=== PATIENT | male | born 1965 | race Caucasian/White ===

== ENCOUNTER → 2016-10-18 | Outpatient (CLI) | payer OTHER ==
[~2016-10-18] MED LIST: OMNIPAQUE 350 MG/ML, 100ML BOTTLE ONE
== END | disposition home or self-care (01) ==
LOC: CFH 12:02
PROVIDERS: ATTEND Internal Medicine Hematology & Oncology
DX: C78.7 Secondary malignant neoplasm of liver and intrahepatic bile duct (principal); C79.51 Secondary malignant neoplasm of bone; C78.89 Secondary malignant neoplasm of other digestive organs; N28.1 Cyst of kidney, acquired; N20.0 Calculus of kidney; M51.37 Other intervertebral disc degeneration, lumbosacral region
CPT/HCPCS: 74177; Q9967

== ENCOUNTER → 2017-03-20 | Outpatient (CLI) | payer OTHER | END | disposition home or self-care (01) | LOC: CFH 12:52 | PROVIDERS: ATTEND Surgery | DX: C7A.8 Other malignant neuroendocrine tumors (principal); K76.9 Liver disease, unspecified; M47.896 Other spondylosis, lumbar region; N28.1 Cyst of kidney, acquired | CPT/HCPCS: 74170; 82565; Q9967 ==

== ENCOUNTER → 2018-02-18 | Outpatient (CLI) | payer OTHER | END | disposition home or self-care (01) | LOC: CFH 11:30 | PROVIDERS: ATTEND Surgery | DX: Z02.9 Encounter for administrative examinations, unspecified (principal) ==

== ENCOUNTER → 2018-08-30 | Outpatient (CLI) | payer OTHER | END | disposition home or self-care (01) | LOC: CFH 12:34 | PROVIDERS: ATTEND Internal Medicine Hematology & Oncology | DX: C78.7 Secondary malignant neoplasm of liver and intrahepatic bile duct (principal); C7A.00 Malignant carcinoid tumor of unspecified site; K80.20 Calculus of gallbladder without cholecystitis without obstruction; M47.814 Spondylosis without myelopathy or radiculopathy, thoracic region; M48.54XA Collapsed vertebra, not elsewhere classified, thoracic region, initial encounter for fracture; N28.1 Cyst of kidney, acquired | CPT/HCPCS: 74160; Q9967 ==

== ENCOUNTER → 2018-12-06 | Outpatient (CLI) | payer OTHER ==
[~2018-12-06] MED LIST changes: +ATOR40TA78 PO; +CETI10TA24 PO; +CHOL5000 PO; +DIPH25CA61 PO; +DULA1.5P INJ; +ENAL20TA PO; +FENO160T PO; +GLIM4TAB2 PO; +OCTR30VI3 INJ; -OMNIPAQUE 350 MG/ML, 100ML BOTTLE ONE; +SITA100T PO
== END | disposition home or self-care (01) ==
LOC: CVU 16:04
PROVIDERS: ATTEND Internal Medicine Interventional Cardiology
DX: E78.5 Hyperlipidemia, unspecified (principal); R53.83 Other fatigue
CPT/HCPCS: 93306

== ENCOUNTER → 2018-12-11 | Outpatient (CLI) | payer OTHER ==
[~2018-12-11] VITALS: Ht 188 cm; Wt 93.2 kg
[2018-12-11 11:59] LABS: ALBUMIN 3.7 g/dL (3.4-5.0); ANION GAP 7 mmol/L (5-15); CALCIUM 8.9 mg/dL (8.5-10.1); CHLORIDE 103 mmol/L (98-107)
[2018-12-11 12:03] LABS: ALANINE AMINOTRANSFERASE 107 U/L (12-78); ALKALINE PHOSPHATASE 134 U/L (45-117); BILIRUBIN,TOTAL 0.5 mg/dL (0.2-1.0); CREATININE 1.58 mg/dL (0.7-1.3); TOTAL PROTEIN 7.5 g/dL (6.4-8.2)
== END | disposition home or self-care (01) ==
LOC: STAR 08:00 → EDSTATUS 12-12 08:30
PROVIDERS: ATTEND Surgery
DX: Z01.818 Encounter for other preprocedural examination (principal); K80.20 Calculus of gallbladder without cholecystitis without obstruction
CPT/HCPCS: 36415; 80053

== ENCOUNTER 2018-12-26 06:21 | Day surgery (SDC) | payer OTHER ==
[~2018-12-26] VITALS: Ht 188 cm; Wt 97.5 kg
[~2018-12-26 06:21] MED LIST changes: +ASPI-496 PO; +CINN500C2 PO; +CYCL-259 PO; +MELO15TA24 PO; +METF500T17 PO; +MILK175C5 PO; +MULT-658 PO; +PIOG30TA67 PO; +TRAM50TA2 PO; +UBID1CAP43 PO
[2018-12-26 07:00] VITALS: BP 98/64
[2018-12-26] MEDS ORDERED: GABAPENTIN 300 MG CAPSULE PO ONE (07:00)
[2018-12-26] MEDS ORDERED: SCOPOLAMINE PATCH, 1.5MG PATCH.TD72 TD ONE (07:00)
[2018-12-26] MEDS ORDERED: ONDANSETRON ODT 8 MG PO ONE (07:00)
[2018-12-26] MEDS ORDERED: LACTATED RINGERS 1,000 ML IV SCH (07:00)
[2018-12-26] MEDS ORDERED: ACETAMINOPHEN 500 MG TABLET PO ONE (07:00)
[2018-12-26] MEDS ORDERED: BUPIVACAINE/PF-EPI 0.5% 1:200K ONE (07:07)
[2018-12-26] MEDS ORDERED: FAMOTIDINE 20 MG TABLET ONE (07:20)
[2018-12-26] MEDS ORDERED: FENTANYL PF 250 MCG/5ML ONE (07:22)
[2018-12-26] MEDS ORDERED: MIDAZOLAM 1 MG/ML, 2ML ONE (07:22)
[2018-12-26] MEDS ORDERED: FAMOTIDINE 20 MG TABLET PO ONE (07:30)
[2018-12-26] MEDS ORDERED: OXYcodone 5 MG/5 ML ORAL.SOL UDC PO PRN (08:30)
[2018-12-26] MEDS ORDERED: LABETALOL 5MG/ML, 20ML IV PRN (08:30)
[2018-12-26] MEDS ORDERED: ONDANSETRON 2MG/ML, 2ML IV PRN (08:30)
[2018-12-26] MEDS ORDERED: hydrALAzine 20 MG/ML, 1ML IV PRN (08:30)
[2018-12-26] MEDS ORDERED: PROMETHAZINE 25 MG/ML, 1ML IV PRN (08:30)
[2018-12-26] MEDS ORDERED: HYDROmorphone 2 MG/ML, 1ML IVPush PRN (08:30)
[2018-12-26] MEDS ORDERED: MEPERIDINE/PF 25MG/0.5ML IVPush PRN (08:30)
[2018-12-26] MEDS ORDERED: PROPOFOL 10 MG/ML, 20ML ONE (09:21)
[2018-12-26] MEDS ORDERED: SUCCINYLCHOLINE 20 MG/ML, 10ML ONE (09:21)
[2018-12-26] MEDS ORDERED: CEFOTETAN PMX 2GM/50ML 50 ML ONE (09:21)
[2018-12-26] MEDS ORDERED: PHENYLEPHRINE 10 MG/ML ONE (09:37)
[2018-12-26] MEDS ORDERED: DEXAMETHASONE 4 MG/ML, 1ML ONE (09:38)
[2018-12-26] MEDS ORDERED: ONDANSETRON 2MG/ML, 2ML ONE (09:38)
[2018-12-26] MEDS ORDERED: FENTANYL PF 100 MCG/2ML ONE (10:32)
[2018-12-26] MEDS ORDERED: OXYcodone 5 MG/5 ML ORAL.SOL UDC ONE (10:33)
[2018-12-26] MEDS: FENTANYL PF 100 MCG/2ML IV PRN ×2 (10:39→10:44)
[2018-12-26] MEDS ORDERED: MEPERIDINE/PF 25MG/ML,1ML ONE (10:47)
== END 2018-12-26 12:20 | disposition home or self-care (01) ==
LOC: OUT 06:21
PROVIDERS: ATTEND Surgery
DX: K80.10 Calculus of gallbladder with chronic cholecystitis without obstruction (principal); I10 Essential (primary) hypertension; E11.9 Type 2 diabetes mellitus without complications; E78.5 Hyperlipidemia, unspecified; I25.10 Atherosclerotic heart disease of native coronary artery without angina pectoris; Z79.899 Other long term (current) drug therapy
CPT/HCPCS: 47562; 82962; 88304; 93005; J0330; J1100; J2175; J2250; J2370; J2405; J2704; J3010; J3490; J7120; Q0162

== ENCOUNTER 2019-12-17 14:30 | Emergency (ER) | payer OTHER ==
[~2019-12-17] VITALS: Ht 188 cm; Wt 95.9 kg
[~2019-12-17 14:30] MED LIST changes: -CETI10TA24 PO; +CETI10TA26 PO; -GLIM4TAB2 PO; +GLIM4TAB8 PO
[2019-12-17] MEDS ORDERED: TRAM50TA2 PO (15:00)
[2019-12-17] MEDS ORDERED: ENAL10TA PO (15:00)
[2019-12-17] MEDS ORDERED: METF1000 PO (15:00)
[2019-12-17 15:36] LABS: BASOPHILS # (AUTO) 0.02 x10^3/uL (0-0.1); BASOPHILS % (AUTO) 0 % (0-1); EOSINOPHILS # (AUTO) 0.15 x10^3/uL (0-0.4); EOSINOPHILS % (AUTO) 3 % (1-7); LYMPHOCYTES # (AUTO) 1.69 x10^3/uL (1-3.4); LYMPHOCYTES % (AUTO) 32 % (22-44); MD NO; MEAN CORPUSCULAR HGB CONC 32.7 g/dL (33.2-36.2); MEAN CORPUSCULAR VOLUME 94.7 fL (81-97); MEAN PLATELET VOLUME 8.8 fL (7.4-10.4); MONOCYTES # (AUTO) 0.62 x10^3/uL (0.2-0.8); MONOCYTES % (AUTO) 12 % (2-9); NEUTROPHILS # (AUTO) 2.77 x10^3/uL (1.8-6.8); NEUTROPHILS % (AUTO) 53 % (42-75); PLATELET COUNT 282 x10^3/uL (130-400); RED BLOOD COUNT 3.62 x10^6/uL (4.38-5.82); RED CELL DISTRIBUTION WIDTH 13.6 % (9.4-14.8)
--- NOTE | 2019-12-17 15:43 | NUR ---
Patient provided UA cup. Pt ambulates to restroom with steady gait and balance. NADN. No needs expressed.
[2019-12-17 15:46] LABS: ALANINE AMINOTRANSFERASE 234 U/L (12-78); ALBUMIN 3.4 g/dL (3.4-5.0); ANION GAP 8 mmol/L (5-15); CALCIUM 8.8 mg/dL (8.5-10.1); CHLORIDE 110 mmol/L (98-107); CREATININE 1.54 mg/dL (0.7-1.3)
[2019-12-17 15:48] LABS: ALKALINE PHOSPHATASE 228 U/L (45-117); BILIRUBIN,TOTAL 2.3 mg/dL (0.2-1.0); TOTAL PROTEIN 7.7 g/dL (6.4-8.2)
[2019-12-17 16:23] LABS: MICROSCOPIC NOT IND
--- NOTE | 2019-12-17 17:48 | NUR ---
PIV ESTABLISHED, NS BOLUS INFUSING PER EMAR. CT AWARE OF PT READY FOR CT. PROVIDED PILLOWS PER PT REQUEST. NADN. NO OTHER NEEDS EXPRESSED.
[2019-12-17] MEDS ORDERED: SODIUM CHLORIDE 0.9% 1,000ML IVBOLUS ONE (18:00)
[2019-12-17] MEDS ORDERED: OMNIPAQUE 350 MG/ML, 100ML BOTTLE ONE (18:14)
--- NOTE | 2019-12-17 18:46 | NUR ---
PT RESTING ON GURNEY. HUANG. NO NEEDS EXPRESSED. WAITING FOR MD TO RECHECK.
--- NOTE | 2019-12-17 18:53 | NUR ---
RECEIVED BEDSIDE REPORT FROM BASHIR YATES. PT SITTING IN BED, BED RAILS UP, CALL LIGHT IN REACH, NO SIGNS OF DISTRESS. WILL CONTINUE TO MONITOR AND WATCH FOR ORDERS.
[2019-12-17 19:36] VITALS: BP 113/64
== END 2019-12-17 19:54 | disposition home or self-care (01) ==
LOC: ED 19:08
DX: N18.9 Chronic kidney disease, unspecified (principal); C79.9 Secondary malignant neoplasm of unspecified site; E86.0 Dehydration; R73.09 Other abnormal glucose
CPT/HCPCS: 36415; 74177; 80053; 81003; 83690; 85025; 96360; 99285; J7030; Q9967

== ENCOUNTER 2020-11-19 17:30 | Inpatient (IN) | payer BC ==
[~2020-11-19] VITALS: Ht 188 cm; Wt 93.0 kg
[~2020-11-19 17:30] MED LIST changes: -CETI10TA26 PO; +CETI10TA76 PO; -CYCL-259 PO; +CYCL10TA2 PO; +ENAL10TA9 PO; -ENAL20TA PO; +ENAL20TA9 PO; +METF1000 PO
--- NOTE | 2020-11-19 17:56 | NUR ---
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
[2020-11-19] MEDS ORDERED: SODIUM CHLORIDE 0.9% 1,000ML IVBOLUS ONE (19:00)
[2020-11-19 19:07] LABS: BASOPHILS % (AUTO) 1 % (0-1); EOSINOPHILS % (AUTO) 3 % (1-7); LYMPHOCYTES % (AUTO) 22 % (22-44); MEAN CORPUSCULAR HEMOGLOBIN 31.1 pg (27.5-34.5); MEAN CORPUSCULAR HGB CONC 34.4 g/dL (33.2-36.2); MEAN PLATELET VOLUME 8.8 fL (7.4-10.4); MONOCYTES % (AUTO) 12 % (2-9); NEUTROPHILS % (AUTO) 63 % (42-75); PLATELET COUNT 346 x10^3/uL (130-400); RED BLOOD COUNT 4.22 x10^6/uL (4.38-5.82); RED CELL DISTRIBUTION WIDTH 14.1 % (9.4-14.8)
[2020-11-19 19:18] LABS: ALANINE AMINOTRANSFERASE 95 U/L (12-78); ALBUMIN 3.5 g/dL (3.4-5.0); ANION GAP 9 mmol/L (5-15); CALCIUM 9.4 mg/dL (8.5-10.1); CHLORIDE 103 mmol/L (98-107); CREATININE 1.62 mg/dL (0.7-1.3)
[2020-11-19 19:21] LABS: ALKALINE PHOSPHATASE 135 U/L (45-117); BILIRUBIN,TOTAL 1.5 mg/dL (0.2-1.0); TOTAL PROTEIN 8.7 g/dL (6.4-8.2)
--- NOTE | 2020-11-19 19:41 | NUR ---
PT CAME IN FROM URGENT CARE WITH DX OF THRUSH YESTERDAY. PT HAS NOT BEE ABLE TO EAT, DRINK , OR SPEAK CLEARLY DUE TO THE PAIN IN HIS MOUTH. PT APPEARS TO HAVE WHITE FUNGAL MATTER ON TONGUE AND MOUTH WITH SORES. PT HX OF CANCER WITH METS ON LIVER. PT ALSO C/O OF LEFT WRIST PAIN ATTACHED TO CARD/SP02/BP MONITORS. VSS. NADN. WCTM, FLUIDS RUNNING. BED IN LOW PSOITION, RAILS ENGAED, CALL LIGHT ON LAP. AT [facility].
[2020-11-19] MEDS ORDERED: SODIUM CHLORIDE 0.9% 1,000 ML IV ONE (20:30)
[2020-11-19] MEDS ORDERED: FLUCONAZOLE 400 MG/200 ML 200 ML IV ONE (20:30)
[2020-11-19] MEDS ORDERED: MORPHINE SULFATE 4 MG/ML, 1ML IVPush PRN (20:30)
[2020-11-19] MEDS ORDERED: MORPHINE SULFATE 4 MG/ML, 1ML ONE (21:04)
--- NOTE | 2020-11-19 21:19 | NUR ---
GAVE REPORT TO JOHN CAMEJO. TRANSFER OF CARE PT CURRENTLY RESTING IN BED WITH CONDITION UNCHANGED. HOSPITALIST TOOK PICTURE OF PT MED REC TO INPUT INTO SYSTEM
[2020-11-19] MEDS ORDERED: ASPIRIN 81 MG TABLET CHEW PO ONE (21:30)
[2020-11-19] MEDS ORDERED: ONDANSETRON 2MG/ML, 2ML IVPush PRN (21:30)
[2020-11-19] MEDS: SODIUM CHLORIDE 0.9% 1,000 ML IV SCH (21:30)
[2020-11-19] MEDS ORDERED: LINAGLIPTIN 5 MG TAB PO SCH (21:30)
[2020-11-19] MEDS ORDERED: GUAIFENESIN/DM 200-20MG, 10ML UDC PO PRN (21:30)
[2020-11-19] MEDS ORDERED: ACETAMINOPHEN 325 MG TABLET PO PRN (21:30)
[2020-11-19] MEDS ORDERED: morphine SULFATE 10 MG/ML, 1ML IVPush PRN (21:30)
[2020-11-19] MEDS ORDERED: DOCUSATE 100 MG CAPSULE PO PRN (21:30)
[2020-11-19] MEDS ORDERED: BACLOFEN 10 MG TABLET PO PRN (21:30)
[2020-11-19] MEDS ORDERED: hydrALAzine 20 MG/ML, 1ML IVPush PRN (21:30)
[2020-11-19 22:01] VITALS: BP 133/87
[2020-11-19] MEDS: FENOFIBRATE 145 MG TABLET PO SCH (22:46)
[2020-11-19] MEDS: NYSTATIN 500,000 UNITS/5 ML UDC PO SCH (22:47)
[2020-11-19] MEDS: HEPARIN 5,000 UNITS/ML, 1ML SQ SCH (22:47)
[2020-11-19] MEDS: ATORVASTATIN 40 MG TABLET PO SCH (22:53)
[2020-11-19] MEDS: DOXYCYCLINE 100 MG in DEXTROSE 5% 250 ML IV SCH (23:02)
[2020-11-19] MEDS: ZOLPIDEM 5MG TABLET PO PRN (23:14)
[2020-11-19] MEDS: OXYcodone IR 5MG TABLET PO PRN (23:14)
[2020-11-20 03:55] VITALS: BP 107/71
[2020-11-20] MEDS: NYSTATIN 500,000 UNITS/5 ML UDC PO SCH ×4 (04:51→22:19)
[2020-11-20] MEDS: OXYcodone IR 5MG TABLET PO PRN ×3 (04:51→20:16)
[2020-11-20 05:32] LABS: BASOPHILS % (AUTO) 1 % (0-1); EOSINOPHILS % (AUTO) 3 % (1-7); LYMPHOCYTES % (AUTO) 34 % (22-44); MEAN CORPUSCULAR HEMOGLOBIN 31.1 pg (27.5-34.5); MEAN CORPUSCULAR HGB CONC 34.2 g/dL (33.2-36.2); MEAN PLATELET VOLUME 9.3 fL (7.4-10.4); MONOCYTES % (AUTO) 12 % (2-9); NEUTROPHILS % (AUTO) 50 % (42-75); PLATELET COUNT 306 x10^3/uL (130-400); RED BLOOD COUNT 3.95 x10^6/uL (4.38-5.82); RED CELL DISTRIBUTION WIDTH 13.9 % (9.4-14.8)
[2020-11-20 05:37] LABS: CHLORIDE 105 mmol/L (98-107)
[2020-11-20 05:45] LABS: ANION GAP 8 mmol/L (5-15); CALCIUM 8.6 mg/dL (8.5-10.1); CREATININE 1.42 mg/dL (0.7-1.3)
[2020-11-20] MEDS: HEPARIN 5,000 UNITS/ML, 1ML SQ SCH ×2 (06:23→16:17)
[2020-11-20] MEDS ORDERED: maalox/diphenh/lido/sucralfate 5 ML PO PRN ×2 (07:00→19:00)
[2020-11-20 07:21] VITALS: BP 108/69
[2020-11-20] MEDS ORDERED: GLIMEPIRIDE 4 MG TABLET PO SCH (09:00)
[2020-11-20] MEDS: CETIRIZINE 10 MG TABLET PO SCH (09:58)
[2020-11-20] MEDS: CHOLECALCIFEROL 1,000 UNIT TABLET PO SCH (09:58)
[2020-11-20] MEDS: DOXYCYCLINE 100 MG in DEXTROSE 5% 250 ML IV SCH ×2 (09:59→22:19)
[2020-11-20] MEDS: SODIUM CHLORIDE 0.9% 1,000 ML IV SCH ×2 (09:59→20:19)
[2020-11-20] MEDS: MULTIVITAMIN 1 TABLET PO SCH (09:59)
[2020-11-20 13:41] VITALS: BP 109/75
[2020-11-20 17:18] VITALS: BP 103/69
[2020-11-20] MEDS: FLUCONAZOLE 100MG/50ML 100 MG in BAG 1 EACH IVPB SCH (20:21)
[2020-11-20] MEDS ORDERED: FLUCONAZOLE 100MG/50ML 100 MG in BAG 1 EACH IVPB SCH (20:30)
[2020-11-20] MEDS: FENOFIBRATE 145 MG TABLET PO SCH (22:19)
[2020-11-20] MEDS: ENALAPRIL 10 MG TABLET PO SCH (22:19)
[2020-11-20] MEDS: ATORVASTATIN 40 MG TABLET PO SCH (22:19)
[2020-11-21] MEDS: HEPARIN 5,000 UNITS/ML, 1ML SQ SCH ×3 (00:31→15:48)
[2020-11-21 00:34] VITALS: BP 100/67
[2020-11-21] MEDS: NYSTATIN 500,000 UNITS/5 ML UDC PO SCH ×4 (04:47→22:10)
[2020-11-21] MEDS: SODIUM CHLORIDE 0.9% 1,000 ML IV SCH ×2 (04:49→15:48)
[2020-11-21 08:18] VITALS: BP 111/75
[2020-11-21] MEDS: MULTIVITAMIN 1 TABLET PO SCH (10:12)
[2020-11-21] MEDS: DOXYCYCLINE 100 MG in DEXTROSE 5% 250 ML IV SCH ×2 (10:12→22:10)
[2020-11-21] MEDS: CETIRIZINE 10 MG TABLET PO SCH (10:12)
[2020-11-21] MEDS: CHOLECALCIFEROL 1,000 UNIT TABLET PO SCH (10:12)
[2020-11-21 13:46] VITALS: BP 110/74
[2020-11-21 19:13] VITALS: BP 109/72
[2020-11-21] MEDS: FLUCONAZOLE 100MG/50ML 100 MG in BAG 1 EACH IVPB SCH (21:12)
[2020-11-21] MEDS: ATORVASTATIN 40 MG TABLET PO SCH (22:11)
[2020-11-21] MEDS: ENALAPRIL 10 MG TABLET PO SCH (22:11)
[2020-11-21] MEDS: FENOFIBRATE 145 MG TABLET PO SCH (22:11)
[2020-11-21] MEDS: ZOLPIDEM 5MG TABLET PO PRN (22:12)
[2020-11-22] MEDS: HEPARIN 5,000 UNITS/ML, 1ML SQ SCH ×2 (00:31→08:48)
[2020-11-22 00:32] VITALS: BP 107/74
[2020-11-22] MEDS: SODIUM CHLORIDE 0.9% 1,000 ML IV SCH (03:04)
[2020-11-22] MEDS: NYSTATIN 500,000 UNITS/5 ML UDC PO SCH ×2 (04:47→10:24)
[2020-11-22 08:34] VITALS: BP 109/75
[2020-11-22] MEDS: MULTIVITAMIN 1 TABLET PO SCH (08:47)
[2020-11-22] MEDS: CETIRIZINE 10 MG TABLET PO SCH (08:47)
[2020-11-22] MEDS: CHOLECALCIFEROL 1,000 UNIT TABLET PO SCH (08:48)
[2020-11-22] MEDS: DOXYCYCLINE 100 MG in DEXTROSE 5% 250 ML IV SCH (10:24)
[2020-11-22] MEDS ORDERED: NYST1000 PO (11:57)
[2020-11-22] MEDS ORDERED: DOXY100C2 PO (11:57)
== END 2020-11-22 11:52 | disposition home or self-care (01) | DRG 683 ==
LOC: ED 22:14 → 4NW 22:15 → DCLOUNGE 11-22 11:50
PROVIDERS: ADMIT Internal Medicine; ATTEND Family Medicine
DX: N17.9 Acute kidney failure, unspecified (principal); B37.0 Candidal stomatitis; E34.0 Carcinoid syndrome; C7A.00 Malignant carcinoid tumor of unspecified site; B37.89 Other sites of candidiasis; C18.9 Malignant neoplasm of colon, unspecified; C78.7 Secondary malignant neoplasm of liver and intrahepatic bile duct; E87.0 Hyperosmolality and hypernatremia; E87.1 Hypo-osmolality and hyponatremia; L03.114 Cellulitis of left upper limb; E46 Unspecified protein-calorie malnutrition; E11.9 Type 2 diabetes mellitus without complications; E78.5 Hyperlipidemia, unspecified; E86.0 Dehydration; F17.290 Nicotine dependence, other tobacco product, uncomplicated; Z82.49 Family history of ischemic heart disease and other diseases of the circulatory system; Z90.49 Acquired absence of other specified parts of digestive tract; Z68.26 Body mass index [BMI] 26.0-26.9, adult
CPT/HCPCS: 36415; 80048; 80053; 83735; 84100; 85025; 87806; 99285; G0378; J1450; J1644; J7060; G0475; J2270; J7030